=== PATIENT | female | born 1960 | race Caucasian/White ===

== ENCOUNTER → 2024-06-02 | Outpatient (CLI) | payer MEDICARE ==
--- NOTE | 2024-07-05 12:34 | CONS ---
CONSULTATION 64-year-old lady who has been evaluated in Sleep Center for possible obstructive sleep apnea-hypopnea syndrome. HISTORY OF PRESENT ILLNESS: Sleep-wake evaluation. The patient had sleep study about 20 years ago, but it was not conclusive at that time. Presently, her sleep schedule from 11 p.m. to 9:00 a.m. 7 days a week. She has problems with falling asleep, has TV set in bedroom. During the sleep, the patient sleeps in different positions with loud snoring and awakenings from sleep up to 4 times with 3 episodes of nocturia. Positive history of heartburn. No history of hypnagogic hallucinations, sleep paralysis, or cataplexy. In the morning, the patient wakes up tired, falling asleep during the day. [place] Sleepiness Scale increased to 10. The patient may take a nap late afternoon. PAST MEDICAL HISTORY: Positive for hypertension, hyperlipidemia, sinus problems, recent possible upper respiratory infection. PAST SURGICAL HISTORY: Total hysterectomy, cholecystectomy, right knee replacement. MEDICATIONS: 1. Atorvastatin 40 mg once a day. 2. Telmisartan 40 mg once a day. 3. Hydrochlorothiazide 12.5 mg once a day. 4. Nexium 40 mg once a day. 5. Aspirin 81 mg once a day. 6. Lexapro 10 mg once a day. 7. Singulair 10 mg once a day. REVIEW OF SYSTEMS: Loud snoring, multiple awakenings from sleep, sleepiness during the day. No fevers. No double vision. No recent chest pain. No shortness of breath. No abdominal pain. No bleeding episodes. No blood in the urine. No seizure episodes. No dizziness. PHYSICAL EXAMINATION: GENERAL: A pleasant lady without any distress. VITAL SIGNS: BP 165/83, HR 77, RR 16, height 5 feet 1-1/4 inches, weight 246.0, BMI 46.1, temperature 97.7, oxygen saturation at room air 93%. HEENT: PERRLA, EOMI, evaluation of oropharynx showed oropharynx extremely low position of soft palate, Mallampati 4. NECK: Wide 19 inches in circumference. Supple, no JVD. Thyroid is not palpable. LUNGS: Clear to percussion and to auscultation. Good air exchange. No wheezing or rhonchi. HEART: S1, S2 regular. No murmurs, gallops, or rubs. ABDOMEN: Obese. Soft and nontender. Bowel sounds are present. No organomegaly appreciated. EXTREMITIES: No clubbing or cyanosis. DAYLIGHT DRILLER: Awake, alert, and oriented X3. Cranial nerves 2 to 7 intact. There is no fasciculation or atrophy. noted. No focal deficits observed. IMPRESSION: 1. Loud snoring, multiple awakenings from sleep, extremely low position of soft palate, Mallampati 4, wide neck, 19 inches in circumference, sleepiness with [place] Sleepiness Scale 10. Obstructive sleep apnea-hypopnea syndrome. 2. Obesity, BMI 46.1. 3. Hypertension. 4. Hyperlipidemia. 5. History of sinus problems. 6. Status post right knee replacement. 7. Status post total hysterectomy. 8. Status post cholecystectomy. 9. Status post surgical treatment for floppy eyelid syndrome. PLAN: 1. Polysomnography for evaluation of the patient breathing during sleep. 2. Following plan after reading a sleep study. 3. Aggressive losing weight program. 4. Precautions related to driving. No driving if feeling sleepiness. 5. Preferable position during sleep on the side. Thank you very much for referring this patient for consultation. MMODL / IJN: [id number] /
== END ==
LOC: 3 N SLEEP 13:20
PROVIDERS: ATTEND Internal Medicine
CPT/HCPCS: 99202

== ENCOUNTER 2024-07-18 19:38 | Outpatient (CLI) | payer MEDICARE ==
--- NOTE | 2024-07-22 13:17 | P.PCN ---
Description of Procedure: POLYSOMNOGRAPHY REPORT PROCEDURE(S)/DATE(S): Polysomnography 07/18/2024 CLINICAL: Patient has been seen in the sleep center for evaluation of obstructive sleep apnea-hypopnea syndrome. Please see my consultation. Sleep study has been done for evaluation of patient breathing during the sleep. PROCEDURE: The standard montage for clinical polysomnography included the electroencephalogram, the electrooculogram, the mentalis surface electromyography and Lead II cardiography. The respiratory battery consisted of measurements of nasal/buccal air flow, pressure transducer measurements from nose, thoracic and/or abdominal effort and intercostal surface electromyography. Video monitoring has been done to check for any parasomnia events. Nocturnal oxyhemoglobin saturations were obtained by finger oximetry. Step-hansen titration with positive airway pressure was utilized to control the respiratory events, if necessary. RESULTS: During the diagnostic sleep study sleep efficiency was slightly decreased to 82.5%. Latency to sleep onset was normal 14.0 min. Sleep architecture showed stage NI was increased to 13.1%, Delta sleep was normal 11.4%, REM sleep was short 9.2%. Respiratory channel showed 137 obstructive apneas, 0 mixed apneas, 1 central apneas, 273 hypopneas with lowest oxygen level 672%. Total apnea hypopnea index was 71.8. Heart rate was in the range between 66 and 74, average 70. EMG showed 0 periodic limb movements per hour. IMPRESSIONS: 1. Extremely severe obstructive sleep apnea hypopnea syndrome. 2. No significant periodic limb movements have been documented. Please see other impressions from consultation PLAN: 1. The patient will have PAP titration for correction of respiratory abnormalities during the sleep. 2. Losing weight program. 3. Sleep hygiene with regular time in bed for at least 7-1/2 hours. 4. No driving if feeling sleepiness. Thank you very much for allowing me to participate in the management of your patient. Sincerely, Richard Campos MD, PhD, FAASM. Diplomat of [place] [employer] Medicine, Sleep Medicine Board by [place] [employer] of [employer] Medicine Nursing Professor of [facility] [place] cc: Suhas Orellana DO, Barry, Deborah PA-C
== END 2024-07-19 05:37 | disposition home or self-care (01) ==
LOC: 3 N SLEEP 19:38
PROVIDERS: ATTEND Internal Medicine
DX: G47.33 Obstructive sleep apnea (adult) (pediatric) (principal)
CPT/HCPCS: 95810

== ENCOUNTER 2024-08-02 19:38 | Outpatient (CLI) | payer MEDICARE ==
--- NOTE | 2024-08-05 13:41 | P.PCN ---
Description of Procedure: CLINICAL: Titration with positive air pressure has been done for correction of respiratory abnormalities during sleep. DESCRIPTION OF PROCEDURE: The standard montage for clinical polysomnography included the electroencephalogram, the electrocardiogram, the mentalis surface electromyography and Lead II cardiography. The respiratory battery consisted of measurements of nasal /buccal air flow, pressure transducer measurements from the nose, thoracic and /or abdominal effort and intercostal surface electromyography. Video monitoring has been done to check for any parasomnia events. Nocturnal oxyhemoglobin saturations were obtained by finger oximetry. Step-hansen titration with positive airway pressure was utilized to control respiratory events. Raw data of sleep recording has been reviewed and is adequate. RESULTS: Sleep efficiency was decreased to 70.4%. Latency to sleep onset was borderline 29.0 minutes.]. Sleep architecture showed stage N1 was increased to 12.3%, Delta sleep was not high range 27.9%, REM sleep was short 7.5%. Heart rate was minimum 57 BPM, maximum 70 BPM, average 64 BPM. EMG showed 26.9 periodic limb movements per hour with 0.4 micriarousals per hour. PAP titration have been done with CPAP up to the pressure 10 cm H2O, then was switched to BPAP. BPAP titrated up to 19/14 cm H2O. The best results were at the pressure 9 cm H2O. Apnea hypopnea index reduced to 2.5. IMPRESSION: 1. Severe obstructive sleep apnea hypopnea syndrome improved with PAP treatment. 2. No significant periodic limb movements have been documented. Please see other impressions from consultation. PLAN: 1. The patient will have treatment with positive air pressure equipment with the level of pressure AutoPAP 5-14 cm H2O and should use it every night for the whole night. 2. Watching weight. 3. Sleep hygiene with regular time in bed for at least 8 hours. 4. No driving if feeling any sleepiness. 5. I will see the patient for follow up visit to explain the results of the test, recommendations, check compliance with treatment and make any necessary adjustment related to mask fitting, pressure and humidification. 6. Please check iron profile including ferritin level. Low level of iron may increase risk for periodic limb movements Thank you very much for allowing me to participate in the management of your patient. Sincerely, Richard Campos MD, PhD, FAASM Diplomat of [place] [employer] Sleep Medicine Board of [place] [employer] Drier [facility] [place] cc: Suhas Lopez DO
== END 2024-08-03 05:57 | disposition home or self-care (01) ==
LOC: 3 N SLEEP 19:38
PROVIDERS: ATTEND Internal Medicine
DX: G47.33 Obstructive sleep apnea (adult) (pediatric) (principal); I10 Essential (primary) hypertension; E78.5 Hyperlipidemia, unspecified; G47.10 Hypersomnia, unspecified; Z87.09 Personal history of other diseases of the respiratory system; Z96.651 Presence of right artificial knee joint; Z90.49 Acquired absence of other specified parts of digestive tract; Z90.710 Acquired absence of both cervix and uterus; Z98.890 Other specified postprocedural states; Z68.42 Body mass index [BMI] 45.0-49.9, adult
CPT/HCPCS: 95811

== ENCOUNTER → 2024-10-28 | Outpatient (CLI) | payer MEDICARE ==
[2024-10-28 13:18] VITALS: BP 144/75; PULSE 100; RESP 18; TEMP 97.7
--- NOTE | 2024-10-28 14:20 | P.PROGSL ---
Subjective DATE: 10/28/2024 FOLLOW UP VISIT. Patient with obstructive sleep apnea hypopnea syndrome return to sleep center for follow-up visit. Recently patient had sleep study which documented obstructive sleep apnea hypopnea syndrome. Patient was initiated on PAP therapy and today is first visit after treatment was started. I explained results of sleep studies to the patient in details. Patient was able to use PAP equipment every night for the whole night. The patient does not have significant problems with the mask, PAP pressure and humidification. [place] sleepiness scale is 8, which is in normal range, improved from the [place] Sleepiness Scale during consultation when it was 10. I checked information from PAP unit. PAP unit pressure 5-14, average 13.8 cm H2O. Usage is 75% for more then 4 hours, average 9 hours per night. Patient was not able to use equipment because of the flu symptoms for about 10 days during the last months, otherwise use it every night Leak is 30 l/m, which is in acceptable range. Apnea Hypopnea Index is 1.8, which is normal. MEDICATIONS: Atorvastatin 40 mg once a day, hydrochlorothiazide 12.5 mg once a d ay, Nexium 40 mg once a day, aspirin 81 mg once a day, telmisartan 40 mg once a day. During physical exam: GENERAL: A pleasant patient without any distress. VITAL SIGNS: Please see below, weight is 240.4 lbs. HEENT: PERRLA, EOMI.low position of soft palate, Mallapati 4 . NECK: Supple. No JVD. LUNGS: Clear to percussion and to auscultation. Good air exchange. No wheezing or rhonchi. HEART: S1, S2 regular. ABDOMEN: Soft and nontender. Obese EXTREMITIES: No clubbing or cyanosis. THERAPEUTIC MASSAGE TECHNICIAN: Awake, alert, and oriented x3. No focal deficit. Impressions: 1. Severe obstructive sleep apnea-hypopnea syndrome, apnea hypopnea index 71.8. Patient demonstrated good compliance with treatment, benefiting from treatment. 2. Obesity, patient lost 6 pounds comparing with previous visit. 3. Hypertension. 4. Hyperlipidemia. 5. History of sinus problems. 6. Status post right knee replacement. 7. Status post surgical treatment for floppy eyelid syndrome. 8. Status post cholecystectomy. 9. Status post total hysterectomy. Plan: 1. Continue using PAP equipment every night for the whole night. 2. To change air filter at least 1-2 times per month. 3. PAP unit should stay lower then position of the head. 4. Advised patient to remove all remaining water from humidifier canister daily and make it dry after each usage. Refill canister with fresh distilled water before each usage. 5. Sleep hygiene with regular time in bed for at least 8 hours. 6. Precautions related to driving. No driving if feel any sleepiness. 7. I will maintain prescription for PAP supplies including mask, tube, filters. 8. Follow up visit in 6 months or earlier if patient has any problems. 9. Watching and losing weight. Thank you very much for allowing me to participate in the management of your patient. Richard Campos MD, PhD, FAASM. Diplomat of [place] [employer] Sleep Medicine, Sleep Medicine Board by [place] [employer] Sales Clerk Supervisor of [facility] [place] Objective - Vital Signs Vital Signs: Vital Signs Temp 97.7 F 10/28/24 13:16 Pulse 100 10/28/24 13:16 Resp 18 10/28/24 13:16 BP 144/75 10/28/24 13:16 Pulse Ox 96 10/28/24 13:16 FiO2 Intake & Output 10/27/24 10/28/24 10/28/24 18:59 06:59 18:59 Weight 108.976 kg
== END ==
LOC: 3 N SLEEP 13:01
PROVIDERS: ATTEND Internal Medicine
DX: G47.33 Obstructive sleep apnea (adult) (pediatric) (principal); I10 Essential (primary) hypertension; E78.5 Hyperlipidemia, unspecified; E66.9 Obesity, unspecified; Z90.49 Acquired absence of other specified parts of digestive tract; Z90.710 Acquired absence of both cervix and uterus; Z87.09 Personal history of other diseases of the respiratory system; Z96.651 Presence of right artificial knee joint; Z99.89 Dependence on other enabling machines and devices
CPT/HCPCS: 99212